=== PATIENT | female | born 1985 | race Caucasian/White ===

== ENCOUNTER 2020-02-13 14:00 | Emergency (ER) | payer MEDICAID, SELFPAY ==
--- NOTE | 2020-02-13 14:04 | PC.NURSE ---
PT AWAKE, ALERT AND ORIENTED X 4 SPEECH CLEAR PT ADMITS TO TAKING 1/2 [employer]
[2020-02-13 14:16] VITALS: BP 137/98; PULSE 116; RESP 8; TEMP 37.1; O2SAT 90; BMI 25.0
[2020-02-13 14:23] VITALS: RESP 6; O2SAT 67
[2020-02-13 14:26] VITALS: PULSE 98; RESP 16; O2SAT 99
[2020-02-13 14:41] LABS: Microscopic, Urine URINE MICROSCOPIC (MICROSCOPIC)
[2020-02-13 14:43] LABS: Basophils # 0.1 K/mm3 (0-0.2); Basophils % 0.6 % (0.1-2.0); Eosinophils # 0.4 K/mm3 (0.0-0.4); Eosinophils % 2.6 % (0.1-12.0); Hematocrit 39.8 % (37.0-47.0); Hemoglobin 13.2 g/dL (12.2-16.2); Lymphocytes # 5.9 K/mm3 (0.7-4.5); Lymphocytes % 41.5 % (10-50); Mean Corpuscular HGB Conc 33.1 g/dL (31.8-35.4); Mean Corpuscular Hemoglobin 31.6 pg (27.0-31.2); Mean Corpuscular Volume 95.5 fl (81-99); Mean Platelet Volume 8.5 fl (7.4-10.4); Monocytes # 0.5 K/mm3 (0.1-1.0); Monocytes % 3.8 % (1.7-9.3); Neutrophils # 7.3 K/mm3 (1.8-7.8); Neutrophils % 51.4 % (37.0-80.0); Platelet Count 337 K/mm3 (142-424); Red Blood Count 4.17 M/mm3 (4.20-5.40); Red Cell Distribution Width 13.9 % (11.5-17.5); White Blood Count 14.2 K/mm3 (4.8-10.8)
[2020-02-13 14:44] LABS: Appearance,Urine CLEAR (Clear); Bilirubin,Urine Negative (Negative); Blood, Urine Negative (Negative); Color,Urine YELLOW (Yellow); Glucose,Urine (UA) Negative (Negative); Ketones,Urine Negative (Negative); Leukocyte Esterase,Urine Negative (Negative); Nitrate,Urine Negative (Negative); PH,Urine 5.5 (5.0-8.5); Protein,Urine Negative (Negative); Specific Gravity, Urine >= 1.030 (1.005-1.030); Urobilinogen,Urine 0.2 EU/dl (0.2)
[2020-02-13 14:45] LABS: Urine Pregnancy, HCG Qual. Negative (Negative)
[2020-02-13 14:51] LABS: RBC,Urine Occasional #/hpf (0-3); Squamous Epithelial Cell,Urine Occasional #/hpf (0-5); WBC,Urine Occasional #/hpf (0-3)
[2020-02-13 14:55] LABS: Alanine Aminotransferase 13 U/L (12-78); Albumin Level 4.4 g/dl (3.5-5.0); Albumin/Globulin Ratio 1.5 (1.1-1.8); Alkaline Phosphatase 49 U/L (38-126); Anion Gap 9.8 mEq/L (5-15); Aspartate Amino Transferase 31 U/L (14-36); Bilirubin,Total 0.2 mg/dl (0.2-1.3); Blood Urea Nitrogen 12 mg/dl (7-17); Calcium 8.7 mg/dl (8.4-10.2); Carbon Dioxide 29 mmol/L (22.0-30.0); Chloride 100 mmol/L (98-107); Creatinine Clearance Estimated 149 mL/min (50-200); Estimated Glomerular Filt Rate 113 ml/min (>60); GFR (African American) 137 ML/MIN (>60); Globulin 2.9 g/dL (1.3-3.2); Glucose 114 mg/dl (74-100); Potassium 3.8 mmoL/L (3.5-5.1); Sodium 135 mmol/L (136-145); Total Protein,Serum 7.3 g/dl (6.3-8.2)
[2020-02-13 14:56] LABS: Barbiturates Screen,Urine Negative ng/ml (<200)
[2020-02-13 14:57] LABS: Amphetamine/Metha Screen,Urine Negative ng/ml (<1000); Benzodiazepines Screen,Urine Negative ng/ml (<200)
[2020-02-13 14:58] LABS: Cannabinoid Screen,Urine Negative ng/ml (<50); Cocaine Screen,Urine Negative ng/ml (<300)
[2020-02-13 14:59] LABS: Ethyl Alcohol < 10 mg/dl (0-10); Methadone Screen,Urine Negative ng/ml (<300)
[2020-02-13 15:00] LABS: Opiate Screen,Urine Negative ng/ml (<300); Phencyclidine Screen,Urine Negative ng/ml (<25)
[2020-02-13 15:03] LABS: Acetaminophen < 10 ug/ml (10-30)
--- NOTE | 2020-02-13 15:03 | ECG_ITS ---
APPROVED REPORT Exam: Resting ECG HR:88 bpm ECG Measurements Heart Rate 88 AXES UT 166 P 49 QRSd 98 QRS 42 QT 380 T 48 QTc 459 <Conclusion> Normal sinus rhythm Incomplete RBBB Otherwise a normal ECG Electronically signed by : Sunil Collins, 02/14/2020 13:59:02
[2020-02-13 15:10] LABS: Salicylate < 1.0 mg/dL (2.0-20.0)
--- NOTE | 2020-02-13 15:28 | HMH.EDGENADL ---
ED Disposition Clinical Impression: Altered mental status Qualifiers: Altered mental status type: stupor Qualified Code(s): R40.1 - Stupor Syncope Qualifiers: Syncope type: vasovagal syncope Qualified Code(s): R55 - Syncope and collapse Disposition: Home, Self-Care Condition on Discharge: Good Instructions: DI for Syncope in Adults (Fainting) Additional Instructions: You have been evaluated for syncopal episode, likely vasovagal. This could be due to your recent concussion, head injury. Please stay hydrated. Avoid drugs and alcohol. Follow-up with your primary care doctor. Referrals: Provider,Referral, [Primary Care Provider] - Time of Disposition: 15:49 - Critical Care Critical Care Time: No Attestation: On 02/13/20, the high probability of a clinically significant, sudden or life threatening deterioration of the following system(s) required my full and direct attention, intervention and personal management. The time I documented below is in addition to time spent performing reported procedures but includes the following listed in this critical care notation. Medical Decision Making - [place] Inquiry Pt receiving controlled substance: No Vital Signs: 02/13/20 14:16 02/13/20 14:23 02/13/20 14:26 Temperature 98.7 F Temperature Source Oral Pulse Rate [Left Radial] 116 H 98 H Respiratory Rate 8 L 6 L 16 Blood Pressure [Right Arm] 137/98 H Blood Pressure Mean [Right Arm] 111 Blood Pressure Source [Right Arm] Blood Pressure Position [Right Arm] Sitting 02 Sat by Pulse Oximetry 90 L 67 L 99 Oxygen Delivery Method Room Air Room Air Room Air 02/13/20 15:34 Temperature Temperature Source Pulse Rate [Left Radial] 84 Respiratory Rate Blood Pressure [Right Arm] 122/80 Blood Pressure Mean [Right Arm] 94 Blood Pressure Source [Right Arm] Automatic Cuff Blood Pressure Position [Right Arm] Sitting 02 Sat by Pulse Oximetry 98 Oxygen Delivery Method Room Air - Lab Data Lab Results 02/13/20 14:20: Urine Color Yellow, Urine Appearance Clear, Urine pH 5.5, Ur Specific Rickman >= 1.030, Urine Protein Negative, Urine Glucose (UA) Negative, Urine Ketones Negative, Urine Blood Negative, Urine Nitrate Negative, Urine Bilirubin Negative, Urine Urobilinogen 0.2, Ur Leukocyte Esterase Negative, Urine RBC Occasional, Urine WBC Occasional, Ur Squamous Epith Cells Occasional, Urine Bacteria None 02/13/20 14:20: Urine HCG, Qual Negative 02/13/20 14:20: Urine Opiates Screen Negative, Urine Methadone Screen Negative, Ur Barbituates Screen Negative, Ur Phencyclidine Scrn Negative, Ur Amphetamines Screen Negative, U Benzodiazepines Scrn Negative, Urine Cocaine Screen Negative, U Marijuana (THC) Screen Negative 02/13/20 14:20: Plasma/Serum Alcohol < 10 02/13/20 14:20: WBC 14.2 H, RBC 4.17 L, Hgb 13.2, Hct 39.8, MCV 95.5, MCH 31.6 H, MCHC 33.1, RDW 13.9, Plt Count 337, MPV 8.5, Neut % (Auto) 51.4, Lymph % (Auto) 41.5, Sweet [place] % (Auto) 3.8, Eos % (Auto) 2.6, Baso % (Auto) 0.6, Neut # (Auto) 7.3, Lymph # (Auto) 5.9 H, Sweet [place] # (Auto) 0.5, Eos # (Auto) 0.4, Baso # (Auto) 0.1 02/13/20 14:20: Sodium 135 L, Potassium 3.8, Chloride 100, Carbon Dioxide 29, Anion Gap 9.8, BUN 12, Creatinine 0.60, Estimated Creat Clear 149, Estimated GFR 113, Est GFR ( Amer) 137, Glucose 114 H, Calcium 8.7, Total Bilirubin 0.2, AST 31, ALT 13, Alkaline Phosphatase 49, Total Protein 7.3, Albumin 4.4, Globulin 2.9, Albumin/Globulin Ratio 1.5, Salicylates < 1.0 L, Acetaminophen < 10 L Result diagrams: 02/13/20 14:20 02/13/20 14:20 Orders (Tests/Meds): ED MEDICATIONS Discontinued Medications Generic Name Dose Route Start Last Admin Trade Name Freq PRN Reason Stop Dose Admin Naloxone HCl 2 mg 02/13/20 14:29 02/13/20 14:03 Narcan 2mg/2ml Syringe IV 02/13/20 14:30 2 mg ONCE ONE Administration - ECG Data Tracing #1 Sinus rhythm with ventricular rate of 88 bpm. QRS 98, QTc 459. ECG initial impression date: 0
[2020-02-13 15:34] VITALS: BP 122/80; PULSE 84; O2SAT 98
[2020-02-13 15:58] VITALS: BP 123/62; PULSE 89; RESP 16; TEMP 36.6; O2SAT 98
== END 2020-02-13 16:00 | disposition home or self-care (01) ==
PROVIDERS: Emergency Provider Emergency Medicine
DX: R40.1 Stupor (principal); R55 Syncope and collapse
CPT/HCPCS: 80053; 80305; 80329; 81001; 81025; 85025; 93005; 96374; 99283; J2310

== ENCOUNTER → 2020-06-12 13:51 | Outpatient (CLI) | payer BC, SELFPAY ==
--- NOTE | 2020-06-12 13:56 | XR_ITS ---
PROCEDURE: XR SHOULDER RT MIN 2V CLINICAL INDICATION: shoulder pain COMPARISON: No exams were available for comparison FINDINGS: No fracture or dislocation. No lytic or blastic change. There is normal mineralization. The joint spaces are well-preserved. No significant degenerative/arthritic changes. No erosive changes evident. Other findings:None. IMPRESSION: No acute findings. Dictated b Aurelio Diaz MD 06/12/2020 14:59 Aurelio Diaz MD in [place] 06/12/2020 14:59
== END ==
PROVIDERS: PCP Nurse Practitioner Family; Visit Provider Orthopaedic Surgery
DX: M25.511 Pain in right shoulder (principal)
CPT/HCPCS: 73030

== ENCOUNTER → 2020-06-28 12:54 | Outpatient (CLI) | payer BC, SELFPAY ==
--- NOTE | 2020-06-28 12:54 | MR_ITS ---
PROCEDURE: MR SHOULDER RT WO CON CLINICAL INDICATION: right shoulder pain S/P injury 1 month ago with co/ntinued pain and limited range of /motion. COMPARISON: DX XR SHOULDER RT MIN 2V from 06/12/2020 TECHNIQUE: Routine multiplanar multi echo sequences are performed without gadolinium enhancement. FINDINGS: The acromioclavicular joint has an unremarkable appearance. No significant subacromial stenosis. There is mild thickening of the supraspinatus and infraspinatus tendons with slight increase in T2 signal consistent with tendinopathy/tendinosis. No evidence rotator cuff tear. Subscapularis and teres minor tendons are intact. There is some minor thickening of the subscapularis tendon with increased T2 signal. Fluid is present within the bicipital tendon sheath below the greater tuberosity level consistent with tendinitis. Bicipital tendon is in place.. No evidence of labral tear. IMPRESSION: 1. Tendinopathy/tendinosis of the supraspinatus, infraspinatus, and subscapularis tendons. No evidence of rotator cuff tear 2. Focal fluid within the bicipital tendon sheath suggesting tendonitis Dictated by: Aurelio Diaz MD 06/29/2020 10:38 Aurelio Diaz MD in [place] 06/29/2020 10:38
== END ==
PROVIDERS: PCP Nurse Practitioner Family; Visit Provider Orthopaedic Surgery
DX: M25.511 Pain in right shoulder (principal)
CPT/HCPCS: 73221

== ENCOUNTER 2021-06-29 18:15 | Emergency (ER) | payer BC, SELFPAY ==
[2021-06-29 18:16] VITALS: BP 123/79; PULSE 95; RESP 22; TEMP 37.5; O2SAT 98; BMI 28.2
--- NOTE | 2021-06-29 18:19 | HMH.EDGENADL ---
ED Disposition Clinical Impression: Alcoholic intoxication Qualifiers: Complication of substance-induced condition: uncomplicated Qualified Code(s): F10.920 - Alcohol use, unspecified with intoxication, uncomplicated Depression Qualifiers: Depression Type: unspecified Qualified Code(s): F32.9 - Major depressive disorder, single episode, unspecified Disposition: Left Against Medical Advice Condition on Discharge: Fair Instructions: DI for Altered Mental Status Referrals: Provider,Referral, MD [Primary Care Provider] - 3 days Time of Disposition: 18:54 - Critical Care Critical Care Time: No Attestation: On , the high probability of a clinically significant, sudden or life threatening deterioration of the following system(s) required my full and direct attention, intervention and personal management. The time I documented below is in addition to time spent performing reported procedures but includes the following listed in this critical care notation. Medical Decision Making - Medical Records Medical records reviewed: Yes: I reviewed the patient's medical records. - [place] Inquiry Pt receiving controlled substance: No Vital Signs: 06/29/21 18:16 Temperature 99.5 F Temperature Source Oral Pulse Rate [Left] 95 H Respiratory Rate 22 Blood Pressure [Right Arm] 123/79 Blood Pressure Mean [Right Arm] 93 Blood Pressure Source [Right Arm] Automatic Cuff 02 Sat by Pulse Oximetry 98 - Lab Data Lab Results 06/29/21 18:20: Urine HCG, Qual Negative Orders (Tests/Meds): ORDERS Category Date Time Status Acetaminophen Stat Lab 06/29/21 18:32 Received Complete Blood Count Auto Diff Stat Lab 06/29/21 18:32 Received Comprehensive Metabolic Panel Stat Lab 06/29/21 18:32 Received Drug Screen,Urine Stat Lab 06/29/21 18:20 Received Ethanol [Ethyl Alcohol] Stat Lab 06/29/21 18:32 Received Salicylate Stat Lab 06/29/21 18:32 Received Urinalysis and Microscopic Stat Lab 06/29/21 18:20 Received Medical Decision Narrative: 36yo F evaluated for abnormal behavior possible overdose. Patient is emotionally distraught but otherwise in no acute distress. Physical exam is largely benign other than her emotional distress. Routine laboratories have been ordered. Pt observed to walk out of the ED. Would not respond to staff. [employer] called. General Adult HPI - General Chief complaint: Altered Mental Status Stated complaint: AMS Time Seen by Provider: 06/29/21 18:19 Mode of Arrival: EMS Source of Information: Patient Limitations: acute intox, emotional distress - History of Present Illness HPI narrative: 36yo F with past medical history of opiate use disorder maintained on Suboxone brought in by EMS for abnormal behavior. Patient reports her and her boyfriend had argument because she is unhappy with their relationship and wants to leave. She states she thinks she is scared him and that is why he called the police. She further states she has had 2 alcoholic beverages today. She is unhappy with her relationship because she thinks he is taking inappropriate medications. To prove this point, she took 2 of them today. She denies any thoughts of self-harm. She denies any thoughts of harm to others. Denies any other recent illness. - Related Data Home Medications Medication Instructions Recorded Confirmed Escitalopram Oxalate 10 mg PO DAILY 06/29/21 06/29/21 Trazodone HCl 150 mg PO HS 06/29/21 06/29/21 buPROPion HCL [Bupropion Xl] 150 mg PO DAILY 06/29/21 06/29/21 Allergies Allergy/AdvReac Type Severity Reaction Status Date / Time No Known Allergies Allergy Verified 06/29/21 18:29 [facility] History - Hepatitis A Screen Drug use history?: Yes Attestation statement:: This patient has been screened for Hepatitis A risk factors. I have reviewed the patient's past medical history: Yes Medical History: Reports:: Anxiety, Depression - Social History Smoking Status: Current every day smoker #
[2021-06-29 18:36] LABS: Microscopic, Urine URINE MICROSCOPIC (MICROSCOPIC)
--- NOTE | 2021-06-29 18:41 | PC.NURSE ---
spoke with pt's father he said he would be here to get her up d/c
[2021-06-29 18:42] LABS: Appearance,Urine CLEAR (Clear); Bilirubin,Urine Negative (Negative); Blood, Urine Negative (Negative); Color,Urine YELLOW (Yellow); Glucose,Urine (UA) Negative (Negative); Ketones,Urine Negative (Negative); Leukocyte Esterase,Urine Negative (Negative); Nitrate,Urine Negative (Negative); Protein,Urine Negative (Negative); Specific Gravity, Urine <= 1.005 (1.005-1.030); Urobilinogen,Urine 0.2 EU/dl (0.2)
--- NOTE | 2021-06-29 18:50 | PC.NURSE ---
pt walked out the back door would not stop, [place] [employer] NOTIFIED
[2021-06-29 18:51] LABS: Urine Pregnancy, HCG Qual. Negative (Negative)
[2021-06-29 18:55] LABS: Basophils # 0.1 K/mm3 (0-0.2); Basophils % 0.8 % (0.1-2.0); Eosinophils # 0.2 K/mm3 (0.0-0.4); Eosinophils % 1.5 % (0.1-12.0); Hemoglobin 13.9 g/dL (12.2-16.2); Lymphocytes # 3.2 K/mm3 (0.7-4.5); Lymphocytes % 33.7 % (10-50); Mean Corpuscular HGB Conc 30.9 g/dL (31.8-35.4); Mean Corpuscular Hemoglobin 30.3 pg (27.0-31.2); Mean Corpuscular Volume 97.9 fl (81-99); Mean Platelet Volume 9.1 fl (7.4-10.4); Monocytes # 0.3 K/mm3 (0.1-1.0); Monocytes % 2.8 % (1.7-9.3); Neutrophils # 5.8 K/mm3 (1.8-7.8); Neutrophils % 61.1 % (37.0-80.0); Platelet Count 281 K/mm3 (142-424); Red Cell Distribution Width 14.1 % (11.5-17.5); White Blood Count 9.5 K/mm3 (4.8-10.8)
[2021-06-29 18:58] LABS: Alanine Aminotransferase 9 U/L (12-78); Albumin Level 4.5 g/dl (3.5-5.0); Albumin/Globulin Ratio 1.5 (1.1-1.8); Alkaline Phosphatase 53 U/L (38-126); Anion Gap 15.7 mEq/L (5-15); Aspartate Amino Transferase 25 U/L (14-36); Bilirubin,Total 0.3 mg/dl (0.2-1.3); Blood Urea Nitrogen 4 mg/dl (7-17); Calcium 8.5 mg/dl (8.4-10.2); Carbon Dioxide 26 mmol/L (22.0-30.0); Chloride 110 mmol/L (98-107); Creatinine Clearance Estimated 138 mL/min (50-200); Estimated Glomerular Filt Rate 94 ml/min (>60); Ethyl Alcohol 255 mg/dl (0-10); GFR (African American) 114 ML/MIN (>60); Globulin 3.1 g/dL (1.3-3.2); Glucose 96 mg/dl (74-100); Potassium 3.7 mmoL/L (3.5-5.1); Sodium 148 mmol/L (136-145); Total Protein,Serum 7.6 g/dl (6.3-8.2)
[2021-06-29 19:03] LABS: Amphetamine/Metha Screen,Urine Negative ng/ml (<1000)
[2021-06-29 19:04] LABS: Barbiturates Screen,Urine Negative ng/ml (<200)
[2021-06-29 19:05] LABS: Benzodiazepines Screen,Urine Negative ng/ml (<200); Cannabinoid Screen,Urine Negative ng/ml (<50)
[2021-06-29 19:06] LABS: Cocaine Screen,Urine Negative ng/ml (<300); Methadone Screen,Urine Negative ng/ml (<300)
[2021-06-29 19:07] LABS: Opiate Screen,Urine Negative ng/ml (<300)
[2021-06-29 19:08] LABS: Phencyclidine Screen,Urine Negative ng/ml (<25)
--- NOTE | 2021-06-29 19:08 | PC.NURSE ---
patient escorted back to ER with police.
[2021-06-29 19:11] LABS: Acetaminophen < 10 ug/ml (10-30); Salicylate < 1.0 mg/dL (2.0-20.0)
--- NOTE | 2021-06-29 19:42 | PC.NURSE ---
Pt walked out Ambulance bay door. This RN asked pt if she wanted to sign her discharge paper work and requested her use proper exit door. Pt said Im not waiting on this shit. Yall are getting on my fucking nerves.
[2021-06-29 19:45] VITALS: BP 00/00; PULSE 0; RESP 0; TEMP -17.7; TEMP 0
== END 2021-06-29 19:46 | disposition left against medical advice (07) ==
PROVIDERS: Emergency Provider Family Medicine
DX: F10.920 Alcohol use, unspecified with intoxication, uncomplicated (principal); F41.8 Other specified anxiety disorders
CPT/HCPCS: 36415; 80053; 80305; 80329; 81001; 81025; 85025; 99282

== ENCOUNTER → 2022-08-07 15:43 | Outpatient (CLI) | payer BC, SELFPAY ==
[2022-08-07 17:28] LABS: Thyroid Stimulating Hormone 2.74 uIU/mL (0.465-4.68)
[2022-08-09 09:12] LABS: Estradiol 45.6 pg/mL (.); FSH 6.9 mIU/mL (.)
== END ==
PROVIDERS: PCP Pediatrics; Visit Provider Obstetrics & Gynecology
DX: Z01.419 Encounter for gynecological examination (general) (routine) without abnormal findings (principal); R53.83 Other fatigue
CPT/HCPCS: 36415; 82670; 83001; 84443

== ENCOUNTER 2022-08-15 12:05 | Outpatient (CLI) | payer BC, SELFPAY ==
[2022-08-15 12:27] VITALS: BP 144/86; PULSE 86; RESP 18; TEMP 36.1; O2SAT 98
== END 2022-08-15 12:57 | disposition home or self-care (01) ==
LOC: INF 12:06
PROVIDERS: PCP Pediatrics; Visit Provider Obstetrics & Gynecology
DX: N77.1 Vaginitis, vulvitis and vulvovaginitis in diseases classified elsewhere (principal); B96.29 Other Escherichia coli [E. coli] as the cause of diseases classified elsewhere
CPT/HCPCS: 96372; J0696

== ENCOUNTER → 2023-05-20 09:29 | Outpatient (CLI) | payer BC, SELFPAY ==
[2023-05-20 10:35] LABS: HCG,Quantitative < 2 mIU/ml (0-5.42)
[2023-05-21 05:10] LABS: Progesterone 0.1 ng/mL (.)
== END ==
PROVIDERS: PCP Pediatrics; Visit Provider Obstetrics & Gynecology
DX: R10.2 Pelvic and perineal pain (principal)
CPT/HCPCS: 36415; 84144; 84702

== ENCOUNTER 2023-09-15 17:22 | Emergency (ER) | payer BC, SELFPAY ==
[2023-09-15 17:25] VITALS: BP 152/100; PULSE 80; RESP 18; TEMP 36.8; O2SAT 100; BMI 26.6
--- NOTE | 2023-09-15 17:52 | CT_ITS ---
PROCEDURE INFORMATION: Exam: CT Chest Without Contrast; Diagnostic Exam date and time: 09/15/2023 6:24 PM Age: 38 years old Clinical indication: Injury or trauma; Fall; Blunt trauma (contusions or hematomas); Additional info: Fall/pain TECHNIQUE: Imaging protocol: Diagnostic computed tomography of the chest without contrast. Radiation optimization: All CT scans at this facility use at least one of these dose optimization techniques: automated exposure control; mA and/or kV adjustment per patient size (includes targeted exams where dose is matched to clinical indication); or iterative reconstruction. REPORTING DATA: Count of CT and Cardiac NM exams in prior 12 months: This patient has received 0 known CTs and 0 known cardiac nuclear medicine studies in the 12 months prior to the current study. COMPARISON: MR SHOULDER RT WO CON 06/28/2020 1:11 PM FINDINGS: Thyroid: The visualized thyroid gland is unremarkable. Lungs: No acute tracheobronchial abnormalities. No infiltrates or edema. No pulmonary contusion.Mild atelectasis in the lung bases. No pulmonary mass lesions are identified. Pleural spaces: No pleural effusions. No pneumothorax. Heart: Heart size normal. Mild coronary artery calcification. Mediastinal space: Granulomatous calcifications in the lower mediastinum, both patrick, and both lung bases. The esophagus is largely contracted without gross abnormality. Lymph nodes: No supraclavicular or axillary adenopathy. No mediastinal or hilar adenopathy. Vasculature: The aorta is unremarkable. No mediastinal hematoma. Minor stranding and vessels in the anterior mediastinal fat is consistent with involuted thymic tissue, age-appropriate. The pulmonary arteries demonstrate no gross abnormality. Kidneys and ureters: Rounded low-density probable cyst in the left renal cortex measuring 7 Hounsfield units. This does not require further assessment. Bones/joints: No acute osseous abnormalities are identified. Mild thoracic spondylosis. Soft tissues: Soft tissues of the thoracic wall demonstrate no acute abnormality. IMPRESSION: 1. No acute thoracic process is identified. 2. Nonemergent findings detailed above. COMMENTS: Consistent with the [employer]'s Incidental Findings Committee white paper (J Am Eduardo Radiol 2018): Any incidental renal lesion less than 1 cm or classified as too small to characterize, or any incidental cystic renal lesion characterized as simple-appearing, is likely benign. No follow-up imaging is recommended for these lesions per consensus recommendations based on imaging criteria.
--- NOTE | 2023-09-15 17:56 | XR_ITS ---
PROCEDURE INFORMATION: Exam: XR Right Tibia and Fibula Exam date and time: 09/15/2023 6:04 PM Age: 38 years old Clinical indication: Injury or trauma; Fall; Blunt trauma; Lower leg; Right; Additional info: Proximal tibia pain due to fall earlier today TECHNIQUE: Imaging protocol: Radiologic exam of the right tibia and fibula. Views: 2 views. COMPARISON: No relevant prior studies available. FINDINGS: Bones/joints: No fracture. Normal alignment is maintained at the knee and ankle. The ankle mortise joint is well maintained. Knee joint spaces are grossly well-maintained. Proximal and distal tibiofibular alignment are normal. No blastic or lytic lesions. No gross joint effusion. Soft tissues: No periostitis or osteolysis. No gross soft tissue abnormalities. No radiopaque foreign bodies. Other findings: Lateral view limited by obliquity. IMPRESSION: No acute findings.
--- NOTE | 2023-09-15 17:56 | XR_ITS ---
PROCEDURE INFORMATION: Exam: XR Right Shoulder Exam date and time: 09/15/2023 6:01 PM Age: 38 years old Clinical indication: Injury or trauma; Fall; Blunt trauma (contusions or hematomas); Shoulder; Right TECHNIQUE: Imaging protocol: Radiologic exam of the right shoulder. Views: 2 or more views. COMPARISON: MR SHOULDER RT WO CON 06/28/2020 1:11 PM FINDINGS: Bones/joints: No fractures. Glenohumeral alignment is normal. A.C. joint alignment is normal. No blastic or lytic lesions. Adjacent ribs are intact. Lungs: Visualized lung parenchyma is unremarkable. Pleural space: No visible pleural effusion or pneumothorax. Soft tissues: No gross soft tissue abnormalities. IMPRESSION: No acute findings.
--- NOTE | 2023-09-15 17:59 | HMH.EDGENADL ---
Discharge Plan Disposition Patient Disposition: Home, Self-Care Prescriptions Prescriptions: New methocarbamol 500 mg tablet 500 mg PO Q8H Qty: 12 0RF No Action buspirone 10 mg tablet 10 mg PO TID buprenorphine-naloxone 8-2 mg tablet, sublingual 1 tab sublingual .1 1/2 tabs QD metronidazole 500 mg tablet 500 mg PO BID amoxicillin-pot clavulanate 875-125 mg tablet 1 tab PO BID Slynd 4 mg (28) Tablet 1 tab PO DAILY trazodone 150 MG tablet 150 mg PO HS bupropion HCl 150 mg tablet extended release 24 hr 300 mg PO DAILY escitalopram oxalate 10 mg tablet 20 mg PO DAILY Referrals Follow up/Referrals: Noa Bryant DO [Primary Care Provider] - See instructions Activity Restrictions/Add. Instructions Additional Instructions/Restrictions: At this time it was felt you are safe to be discharged home. If new or worsening symptoms please do not hesitate to return the emergency department. If symptoms persist please follow-up with your family doctor as you are able. Please take your medication as prescribed. Clinical Impressions Clinical Impression: Blunt trauma, Fall, Rib pain Discharge ED Provider: Corona Begum General Adult HPI General Chief complaint: PAIN Stated complaint: AO fall, hit right side of chest, right arm, soa, Time Seen by Provider: 09/15/23 17:40 Mode of Arrival: Ambulatory Source of Information: Patient and Spouse Limitations: No Limitations Description of Symptoms (Recalled from ER Triage Doc. by RN): c/o right breast into her rib and back after a fall earlier today around 3pm where she hit a stove with hurt area. Pt states that the pain goes down her right arm causing stiffness in her fingers, some pain on her right skin. Pt denies hitting her head any loc or other injuries at this time. History of Present Illness HPI narrative: Patient is a 38-year-old female with no pertinent past medical history no blood thinners who presents emergency department for evaluation of traumatic injury sustained in a fall. History is obtained by patient at bedside. Patient had a chemical fall earlier today onto her right thoracic cage and shoulder with resultant pain. No loss of consciousness. She is complaining of associated right shoulder pain, right tibia pain. No other acute complaints at this time. Related Data Home Medications Medication Instructions Recorded Confirmed trazodone 150 mg tablet 150 mg PO HS Depression 06/29/21 08/15/22 buprenorphine 8 mg-naloxone 2 mg 1 tab sublingual .1 1/2 tabs QD 08/07/22 08/15/22 sublingual tablet addiction bupropion HCl 150 mg 24 hr tablet, 300 mg PO DAILY Anxiety 08/07/22 08/15/22 extended release buspirone 10 mg tablet 10 mg PO TID Anxiety 08/07/22 08/15/22 escitalopram oxalate 10 mg tablet 20 mg PO DAILY Anxiety 08/07/22 08/15/22 amoxicillin 875 mg-potassium 1 tab PO BID vaginal infection 08/15/22 08/15/22 clavulanate 125 mg tablet drospirenone (contraceptive) 4 mg 1 tab PO DAILY hormones 08/15/22 08/15/22 (28) tablet (Slynd) metronidazole 500 mg tablet 500 mg PO BID vaginal infection 08/15/22 08/15/22 Previous Rx's Medication Instructions Recorded methocarbamol 500 mg tablet 500 mg PO Q8H #12 tabs 09/15/23 Allergies Allergy/AdvReac Type Severity Reaction Status Date / Time No Known Allergies Allergy Verified 08/15/22 12:18 [facility] Disclaimer: The information contained in this section may have been updated after the patient was seen, as this information can be updated by other users. Medical History Abnormal uterine bleeding Anxiety Breast tenderness in female History of drug abuse Pelvic pain Surgical History History of section, classical Family History Other Alcoholism Cancer Diabetes Heart attack
[2023-09-15 18:04] LABS: Urine Pregnancy, HCG Qual. Negative (Negative)
[2023-09-15 18:45] VITALS: BP 131/70; PULSE 71; RESP 18; O2SAT 98
[2023-09-15 19:15] VITALS: BP 133/81; PULSE 80; RESP 16; TEMP 36.8; O2SAT 98
== END 2023-09-15 19:16 | disposition home or self-care (01) ==
PROVIDERS: Emergency Provider Emergency Medicine; PCP Pediatrics
DX: R07.82 Intercostal pain (principal); W19.XXXA Unspecified fall, initial encounter; Z87.891 Personal history of nicotine dependence
CPT/HCPCS: 71250; 73030; 73590; 81025; 99284; 99285

== ENCOUNTER 2023-12-31 21:14 | Emergency (ER) | payer BC, SELFPAY ==
--- NOTE | 2023-12-31 21:30 | PC.NURSE ---
called triage. sent to room 4.
[2023-12-31 21:40] VITALS: BP 134/90; PULSE 51; RESP 20; TEMP 36.8; O2SAT 100; BMI 29.7
--- NOTE | 2023-12-31 21:46 | HMH.EDGENADL ---
Discharge Plan Disposition Patient Disposition: Home, Self-Care Condition: Good Prescriptions Prescriptions: New ondansetron 4 mg tablet,disintegrating 4 mg PO Q6H PRN (Reason: nausea and vomiting) Qty: 10 0RF promethazine 25 mg tablet 25 mg PO Q6H PRN (Reason: nausea and vomiting) Qty: 7 0RF No Action buspirone 10 mg tablet 10 mg PO TID buprenorphine-naloxone 8-2 mg tablet, sublingual 1 tab sublingual .1 1/2 tabs QD metronidazole 500 mg tablet 500 mg PO BID amoxicillin-pot clavulanate 875-125 mg tablet 1 tab PO BID Slynd 4 mg (28) Tablet 1 tab PO DAILY trazodone 150 MG tablet 150 mg PO HS bupropion HCl 150 mg tablet extended release 24 hr 300 mg PO DAILY escitalopram oxalate 10 mg tablet 20 mg PO DAILY methocarbamol 500 mg tablet 500 mg PO Q8H Qty: 12 0RF Referrals Follow up/Referrals: Noa Bryant DO [Primary Care Provider] - See instructions Activity Restrictions/Add. Instructions Additional Instructions/Restrictions: Turn to the ER for any worsening or continuing symptoms. Please follow-up with your PCP as needed. Please reinitiate diet with bland foods like banana rice applesauce or toast. Please avoid carbonated beverages for at least 24 to 48 hours. Clinical Impressions Clinical Impression: Abdominal pain, vomiting, and diarrhea Discharge ED Provider: Enoch Banda General Adult HPI <JILLIAN Jameson - Last Filed: 12/31/23 23:28> General Chief complaint: Abdominal Pain Stated complaint: vomiting X 2 days, abd pain Time Seen by Provider: 12/31/23 21:46 Mode of Arrival: Ambulatory Source of Information: Patient Limitations: No Limitations Description of Symptoms (Recalled from ER Triage Doc. by RN): Pt ambulatory to ED with CO lower abd pain, N/V/D X3 days. Pt states she also noticed her urine to be darker yesterday. Pt took ibuprofen @1300 today without adequate relief. History of Present Illness HPI narrative: Patient is a 38-year-old female presents with a 3-day history of worsening nausea vomiting and now abdominal pain. Patient reports nonbilious multiple episodes of nausea vomiting but and loose stools. She began having diffuse lower abdominal pain and she presented to the emergency department for evaluation. She denies chest pain fever chills hemoptysis hematochezia melena hematemesis hematuria Related Data Home Medications Medication Instructions Recorded Confirmed trazodone 150 mg tablet 150 mg PO HS Depression 06/29/21 08/15/22 buprenorphine 8 mg-naloxone 2 mg 1 tab sublingual .1 1/2 tabs QD 08/07/22 08/15/22 sublingual tablet addiction bupropion HCl 150 mg 24 hr tablet, 300 mg PO DAILY Anxiety 08/07/22 08/15/22 extended release buspirone 10 mg tablet 10 mg PO TID Anxiety 08/07/22 08/15/22 escitalopram oxalate 10 mg tablet 20 mg PO DAILY Anxiety 08/07/22 08/15/22 amoxicillin 875 mg-potassium 1 tab PO BID vaginal infection 08/15/22 08/15/22 clavulanate 125 mg tablet drospirenone (contraceptive) 4 mg 1 tab PO DAILY hormones 08/15/22 08/15/22 (28) tablet (Slynd) metronidazole 500 mg tablet 500 mg PO BID vaginal infection 08/15/22 08/15/22 Previous Rx's Medication Instructions Recorded methocarbamol 500 mg tablet 500 mg PO Q8H #12 tabs 09/15/23 ondansetron 4 mg disintegrating 4 mg PO Q6H PRN nausea and 12/31/23 tablet vomiting #10 tabs promethazine 25 mg tablet 25 mg PO Q6H PRN nausea and 12/31/23 vomiting #7 tabs Allergies Allergy/AdvReac Type Severity Reaction Status Date / Time No Known Allergies Allergy Verified 08/15/22 12:18 [facility] <JILLIAN Jameson - Last Filed: 12/31/23 23:28> [facility] Disclaimer: The information contained in this section may have been updated after the patient was seen, as this information can be updated by other users. Medical History Abnormal uterine bleeding Anxiety Breast tenderness in female History of drug abuse Pelvic pain Surgical History History of section, classical Family History Other Alcoholism Cancer Diabetes Heart attack Hyperlipidemia Hypertension Substance abuse Social History (Updated 08/15/22 @ 12:37 by Edy Mcclelland RN) Smoking Status: Current every day smoker alcohol intake: current substance use type: former substance user current occupational status: other Travel in the last 8 weeks: None household members: other <JILLIAN Jameson - Last Filed: 12/31/23 23:28> ROS Obtained: Yes Systems reviewed as appropriate & no additional complaints except as documented Physical Exam <JILLIAN Jameson - Last Filed: 12/31/23 23:28> General General appearance: alert and in no apparent distress Head Head exam: atraumatic and normal inspection Eye Eye exam: Present normal appearance, PERRL and EOMI ENT ENT exam: Present normal exam, normal oropharynx and mucous membranes moist Neck Neck exam: Present normal inspection, full ROM and trachea midline; Absent lymphadenopathy Chest Chest inspection: Present normal inspection and symmetric chest wall rise Respiratory Respiratory exam: Present normal lung sounds bilaterally; Absent accessory muscle use Cardiovascular Cardiovascular exam: Present regular rate, bradycardia, normal heart sounds, +S1 and +S2 Abdominal Exam Abdominal exam: Present soft, tenderness and hyperactive bowel sounds; Absent guarding or rebound Extremities Exam Extremities exam: Present normal inspection and full ROM Neurological Exam Neurological exam: Present alert, oriented X3 and CN II-XII intact Psychiatric Psychiatric exam: Present normal affect and normal mood Skin Skin exam: Present warm, dry and normal color Lymphatic Lymphatic Findings: no adenopathy Medical Decision Making <JILLIAN Jameson - Last Filed: 12/31/23 23:28> Medical Records Medical records reviewed: Yes I reviewed the patient's medical records. [place] Inquiry Pt receiving controlled substance: No Vital Signs: 12/31/23 21:40 12/31/23 22:01 12/31/23 22:30 Temperature 98.3 F Temperature Source Oral Pulse Rate 49 L 47 L Pulse Rate [Right Radial] 51 L Respiratory Rate 20 Blood Pressure 115/70 130/72 Blood Pressure [Right Arm] 134/90 Blood Pressure Mean 91 Blood Pressure Mean [Right Arm] 104 Blood Pressure Source [Right Arm] Automatic Cuff 02 Sat by Pulse Oximetry 100 99 99 Oxygen Delivery Method Room Air 12/31/23 23:01 Temperature Temperature Source Pulse Rate 46 L Pulse Rate [Right Radial] Respiratory Rate Blood Pressure 160/89 H Blood Pressure [Right Arm] Blood Pressure Mean Blood Pressure Mean [Right Arm] Blood Pressure Source [Right Arm] 02 Sat by Pulse Oximetry 99 Oxygen Delivery Method Lab Data Lab Results 12/31/23 21:39: Urine Color Yellow, Urine Appearance Clear, Urine pH 7.0, Ur Specific [employer] 1.010, Urine Protein Negative, Urine Glucose (UA) Negative, Urine Ketones Negative, Urine Blood 1+, Urine Nitrate Negative, Urine Bilirubin Negative, Urine Urobilinogen 2.0, Ur Leukocyte Esterase Negative, Urine RBC 3-5, Urine WBC Occasional, Ur Squamous Epith Cells 3-5, Urine Bacteria None 12/31/23 21:50: WBC 12.9 H, RBC 4.80, Hgb 15.2, Hct 45.9, MCV 95.6, MCH 31.8 H, MCHC 33.2, RDW 14.0, Plt Count 266, MPV 9.7, Neut % (Auto) 60.8, Lymph % (Auto) 33.7, [place] % (Auto) 4.6, Eos % (Auto) 0.4, Baso % (Auto) 0.4, Neut # (Auto) 7.8, Lymph # (Auto) 4.3, [place] # (Auto) 0.6, Eos # (Auto) 0.1, Baso # (Auto) 0.1, Sodium 137, Potassium 3.4 L, Chloride 103, Carbon Dioxide 25, Anion Gap 12.4, BUN 12, Creatinine 0.80, Estimated Creat Clear 124, Estimated GFR 80, Est GFR ( Amer) 97, Glucose 105 H, Calcium 9.1, Total Bilirubin 1.0, AST 24, ALT 15, Alkaline Phosphatase 52, Troponin I < 0.01, Total Protein 7.5, Albumin 4.5, Globulin 3.0, Albumin/Globulin Ratio 1.5, Lipase 237, HCG, Quant < 2 12/31/23 21:50 12/31/23 21:50 Orders (Tests/Meds): ED MEDICATIONS Discontinued Medications Generic Name Dose Route Start Last Admin Trade Name Freq PRN Reason Stop Dose Admin Acetaminophen 1,000 mg 12/31/23 21:50 12/31/23 22:05 Acetaminophen 1,000mg/100ml Vial IV 12/31/23 21:51 1,000 mg ONCE ONE Administration Lactated Ringer's 1,000 mls @ 999 mls/hr 12/31/23 21:50 12/31/23 22:05 Lactated Ringer's 1000 Ml Bag IV 12/31/23 22:50 999 mls/hr .Q1H1M ONE Administration Ketorolac Tromethamine 15 mg 12/31/23 21:50 12/31/23 22:03 Ketorolac 30mg/Ml Vial IV 12/31/23 21:51 15 mg ONCE ONE Administration Ondansetron HCl 4 mg 12/31/23 21:50 12/31/23 22:05 Ondansetron 4mg/2ml Vial IV 12/31/23 21:51 4 mg ONCE ONE Administration Ondansetron HCl 4 mg 12/31/23 22:57 12/31/23 23:08 Ondansetron 4mg/2ml Vial IV 12/31/23 22:58 4 mg ONCE ONE Administration ORDERS Category Date Time Status CBC w/Auto Diff [Complete Blood Count Auto Diff] Stat Lab 12/31/23 21:50 Completed CMP [Comprehensive Metabolic Panel] Stat Lab 12/31/23 21:50 Completed HCG,Quantitative Stat Lab 12/31/23 21:50 Completed Lipase Stat Lab 12/31/23 21:50 Completed Troponin I Q3H Lab 01/01/24 02:00 Ordered Troponin I Q3H Lab 01/01/24 05:00 Ordered Troponin I Stat Lab 12/31/23 21:50 Completed Urinalysis and Microscopic Stat Lab 12/31/23 21:39 Completed Medical Decision Narrative: In summary patient is a 38-year-old female presents to the emergency department for evaluation of nausea vomiting diarrhea. Patient is normotensive with heart rate of 51 and afebrile]. Skull exam is nonfocal although patient has diffuse mild abdominal pain on examination she has no rebound no guarding no rigidity bowel sounds are hyperactive. Additionally patient has a sinus bradycardia with a rate in the upper 40s to low 50s on monitor and patient is asymptomatic with no dizziness chest pain diaphoresis. Differential diagnosis includes gastroenteritis versus small bowel obstruction versus bacterial versus viral infection urinary tract infection cholecystitis acute appendicitis etc. Initial workup will be conducted with hematologic labs. Initial interventions include fluid bolus and Tylenol antiemetics EKG. Initial workup reviewed by me shows a white count of 13,000 but no shift on differential. CMP shows a potassium of 3.4 with a low normal being 3.5. The remainder of her laboratory occasions are nonactionable.. Upon further investigation with the patient regarding her bradycardia patient states that she has had a with low heart rate all my life . Upon repeat evaluation some resolution of her constitutional symptoms and has not vomited since in the ER.. Given this Prober for discharge with a prescription for Zofran and backed up by Phenergan should the Zofran did not work. Patient to return to the emergency department or PCP if her symptoms continue. <Enoch Banda MD - Last Filed: 12/31/23 23:45> Vital Signs: 12/31/23 21:40 12/31/23 22:01 12/31/23 22:30 Temperature 98.3 F Temperature Source Oral Pulse Rate 49 L 47 L Pulse Rate [Right Radial] 51 L Respiratory Rate 20 Blood Pressure 115/70 130/72 Blood Pressure [Right Arm] 134/90 Blood Pressure Mean 91 Blood Pressure Mean [Right Arm] 104 Blood Pressure Source [Right Arm] Automatic Cuff 02 Sat by Pulse Oximetry 100 99 99 Oxygen Delivery Method Room Air 12/31/23 23:01 Temperature Temperature Source Pulse Rate 46 L Pulse Rate [Right Radial] Respiratory Rate Blood Pressure 160/89 H Blood Pressure [Right Arm] Blood Pressure Mean Blood Pressure Mean [Right Arm] Blood Pressure Source [Right Arm] 02 Sat by Pulse Oximetry 99 Oxygen Delivery Method Lab Data Lab Results 12/31/23 21:39: Urine Color Yellow, Urine Appearance Clear, Urine pH 7.0, Ur Specific [employer] 1.010, Urine Protein Negative, Urine Glucose (UA) Negative, Urine Ketones Negative, Urine Blood 1+, Urine Nitrate Negative, Urine Bilirubin Negative, Urine Urobilinogen 2.0, Ur Leukocyte Esterase Negative, Urine RBC 3-5, Urine WBC Occasional, Ur Squamous Epith Cells 3-5, Urine Bacteria None 12/31/23 21:50: WBC 12.9 H, RBC 4.80, Hgb 15.2, Hct 45.9, MCV 95.6, MCH 31.8 H, MCHC 33.2, RDW 14.0, Plt Count 266, MPV 9.7, Neut % (Auto) 60.8, Lymph % (Auto) 33.7, [place] % (Auto) 4.6, Eos % (Auto) 0.4, Baso % (Auto) 0.4, Neut # (Auto) 7.8, Lymph # (Auto) 4.3, [place] # (Auto) 0.6, Eos # (Auto) 0.1, Baso # (Auto) 0.1, Sodium 137, Potassium 3.4 L, Chloride 103, Carbon Dioxide 25, Anion Gap 12.4, BUN 12, Creatinine 0.80, Estimated Creat Clear 124, Estimated GFR 80, Est GFR ( Amer) 97, Glucose 105 H, Calcium 9.1, Total Bilirubin 1.0, AST 24, ALT 15, Alkaline Phosphatase 52, Troponin I < 0.01, Total Protein 7.5, Albumin 4.5, Globulin 3.0, Albumin/Globulin Ratio 1.5, Lipase 237, HCG, Quant < 2 Orders (Tests/Meds): ED MEDICATIONS Discontinued Medications Generic Name Dose Route Start Last Admin Trade Name Freq PRN Reason Stop Dose Admin Acetaminophen 1,000 mg 12/31/23 21:50 12/31/23 22:05 Acetaminophen 1,000mg/100ml Vial IV 12/31/23 21:51 1,000 mg ONCE ONE Administration Lactated Ringer's 1,000 mls @ 999 mls/hr 12/31/23 21:50 12/31/23 22:05 Lactated Ringer's 1000 Ml Bag IV 12/31/23 22:50 999 mls/hr .Q1H1M ONE Administration Ketorolac Tromethamine 15 mg 12/31/23 21:50 12/31/23 22:03 Ketorolac 30mg/Ml Vial IV 12/31/23 21:51 15 mg ONCE ONE Administration Ondansetron HCl 4 mg 12/31/23 21:50 12/31/23 22:05 Ondansetron 4mg/2ml Vial IV 12/31/23 21:51 4 mg ONCE ONE Administration Ondansetron HCl 4 mg 12/31/23 22:57 12/31/23 23:08 Ondansetron 4mg/2ml Vial IV 12/31/23 22:58 4 mg ONCE ONE Administration ORDERS Category Date Time Status CBC w/Auto Diff [Complete Blood Count Auto Diff] Stat Lab 12/31/23 21:50 Completed CMP [Comprehensive Metabolic Panel] Stat Lab 12/31/23 21:50 Completed HCG,Quantitative Stat Lab 12/31/23 21:50 Completed Lipase Stat Lab 12/31/23 21:50 Completed Troponin I Q3H Lab 01/01/24 02:00 Ordered Troponin I Q3H Lab 01/01/24 05:00 Ordered Troponin I Stat Lab 12/31/23 21:50 Completed Urinalysis and Microscopic Stat Lab 12/31/23 21:39 Completed Medical Decision Narrative: In summary patient is a 38-year-old female presents to the emergency department for evaluation of nausea vomiting diarrhea. Patient is normotensive with heart rate of 51 and afebrile]. Skull exam is nonfocal although patient has diffuse mild abdominal pain on examination she has no rebound no guarding no rigidity bowel sounds are hyperactive. Additionally patient has a sinus bradycardia with a rate in the upper 40s to low 50s on monitor and patient is asymptomatic with no dizziness chest pain diaphoresis. Differential diagnosis includes gastroenteritis versus small bowel obstruction versus bacterial versus viral infection urinary tract infection cholecystitis acute appendicitis etc. Initial workup will be conducted with hematologic labs. Initial interventions include fluid bolus and Tylenol antiemetics EKG. Initial workup reviewed by me shows a white count of 13,000 but no shift on differential. CMP shows a potassium of 3.4 with a low normal being 3.5. The remainder of her laboratory occasions are nonactionable.. Upon further investigation with the patient regarding her bradycardia patient states that she has had a with low heart rate all my life . Upon repeat evaluation some resolution of her constitutional symptoms and has not vomited since in the ER.. Given this Prober for discharge with a prescription for Zofran and backed up by Phenergan should the Zofran did not work. Patient to return to the emergency department or PCP if her symptoms continue. Solo: I assume primary responsibility for this patient after signout from previous physician. I agree with and independently interpreted workup ordered by previous physician. hCG was added on by me on initiation of shift. hCG negative, this likely represents acute gastroenteritis. Because patient at baseline without signs or symptoms of clinical decompensation, deemed appropriate for discharge. Results were relayed to patient who voiced understanding and were agreeable to outpatient management and follow up. At the time of discharge the patient was hemodynamically stable, tolerating PO, and mobilizing appropriately. I was consulted by the GODFREY, and we discussed the complexity of the problems being addressed. I approved the treatment and management plan for this patient?s care in the Emergency Department, thus performing a substantive portion of the medical decision making. Enoch Banda MD Critical Care <JILLIAN Jameson - Last Filed: 12/31/23 23:28> Critical Care Time Critical Care Time: No
[2023-12-31 22:01] VITALS: BP 115/70; PULSE 49; O2SAT 99
[2023-12-31] MEDS: KETOROLAC 30MG/ML VIAL 15 MG IV (22:03)
[2023-12-31 22:05] LABS: Microscopic, Urine URINE MICROSCOPIC (MICROSCOPIC)
[2023-12-31] MEDS: LACTATED RINGERS 1000ML 1,000 ML 999 ML IV (22:05)
[2023-12-31] MEDS: ACETAMINOPHEN 1,000MG/100ML VIAL 1000 MG IV (22:05)
[2023-12-31] MEDS: ONDANSETRON 4MG/2ML VIAL 4 MG IV ×2 (22:05→23:08)
[2023-12-31 22:06] LABS: Appearance,Urine CLEAR (Clear); Bilirubin,Urine Negative (Negative); Blood, Urine 1+ (Negative); Color,Urine YELLOW (Yellow); Glucose,Urine (UA) Negative (Negative); Ketones,Urine Negative (Negative); Leukocyte Esterase,Urine Negative (Negative); Nitrate,Urine Negative (Negative); Protein,Urine Negative (Negative)
[2023-12-31 22:12] LABS: Basophils # 0.1 K/mm3 (0-0.2); Basophils % 0.4 % (0.1-2.0); Eosinophils # 0.1 K/mm3 (0.0-0.4); Eosinophils % 0.4 % (0.1-12.0); Hematocrit 45.9 % (37.0-47.0); Hemoglobin 15.2 g/dL (12.2-16.2); Lymphocytes # 4.3 K/mm3 (0.7-4.5); Lymphocytes % 33.7 % (10-50); Mean Corpuscular HGB Conc 33.2 g/dL (31.8-35.4); Mean Corpuscular Hemoglobin 31.8 pg (27.0-31.2); Mean Corpuscular Volume 95.6 fl (81-99); Mean Platelet Volume 9.7 fl (7.4-10.4); Monocytes # 0.6 K/mm3 (0.1-1.0); Monocytes % 4.6 % (1.7-9.3); Neutrophils # 7.8 K/mm3 (1.8-7.8); Neutrophils % 60.8 % (37.0-80.0); Platelet Count 266 K/mm3 (142-424); White Blood Count 12.9 K/mm3 (4.8-10.8)
[2023-12-31 22:26] LABS: Alanine Aminotransferase 15 U/L (12-78); Albumin Level 4.5 g/dl (3.5-5.0); Albumin/Globulin Ratio 1.5 (1.1-1.8); Alkaline Phosphatase 52 U/L (38-126); Anion Gap 12.4 mEq/L (5-15); Aspartate Amino Transferase 24 U/L (14-36); Blood Urea Nitrogen 12 mg/dl (7-17); Calcium 9.1 mg/dl (8.4-10.2); Carbon Dioxide 25 mmol/L (22.0-30.0); Chloride 103 mmol/L (98-107); Creatinine Clearance Estimated 124 mL/min (50-200); Estimated Glomerular Filt Rate 80 ml/min (>60); GFR (African American) 97 ML/MIN (>60); Glucose 105 mg/dl (74-100); Lipase 237 U/L (23-300); Potassium 3.4 mmoL/L (3.5-5.1); Sodium 137 mmol/L (136-145); Total Protein,Serum 7.5 g/dl (6.3-8.2)
[2023-12-31 22:30] VITALS: BP 130/72; PULSE 47; O2SAT 99
[2023-12-31 22:41] LABS: WBC,Urine Occasional #/hpf (0-3)
[2023-12-31 23:01] VITALS: BP 160/89; PULSE 46; O2SAT 99
--- NOTE | 2023-12-31 23:06 | ECG_ITS ---
APPROVED REPORT Exam: Resting ECG HR:46 bpm ECG Measurements Heart Rate 46 AXES QRSd 105 QRS 100 QT 463 T 79 QTc 422 Conclusion SUPRAVENTRICULAR BRADYCARDIA BORDERLINE RIGHT AXIS DEVIATION [QRS AXIS > 90] LOW QRS VOLTAGE IN PRECORDIAL LEADS [QRS DEFLECTION < 1.0 mV IN CHEST LEADS] ABNORMAL RHYTHM ECG UNCONFIRMED REPORT Electronically signed by : Skip Mac MD 01/01/2024 20:01:43
--- NOTE | 2023-12-31 23:09 | PC.NURSE ---
Pt states i have had a low heart rate my whole life PA Don aware of pts hx of bradycardia.
--- NOTE | 2023-12-31 23:20 | PC.NURSE ---
PT ASSISTED TO BATHROOM
[2023-12-31 23:22] LABS: Troponin I < 0.01 ng/ml (0.00-0.034)
--- NOTE | 2023-12-31 23:25 | PC.NURSE ---
PT. ASSISTED BACK TO BED AND HOOKED BACK UP
[2023-12-31 23:31] VITALS: BP 136/81; PULSE 45; RESP 16; O2SAT 99
[2023-12-31 23:38] LABS: HCG,Quantitative < 2 mIU/ml (0-5.42)
[2024-01-01 00:01] VITALS: BP 147/89; PULSE 44; RESP 26; O2SAT 97
[2024-01-01 00:11] VITALS: BP 147/89; PULSE 88; RESP 18; TEMP 36.9
== END 2024-01-01 00:12 | disposition home or self-care (01) ==
PROVIDERS: Emergency Medicine; Physician Assistant; Emergency Provider Emergency Medicine; PCP Pediatrics
DX: R10.30 Lower abdominal pain, unspecified (principal); R11.2 Nausea with vomiting, unspecified; R19.7 Diarrhea, unspecified; F17.200 Nicotine dependence, unspecified, uncomplicated
CPT/HCPCS: 80053; 81001; 83690; 84484; 84702; 85025; 93005; 96361; 96374; 96375; 96376; 99285; J0131; J2405

== ENCOUNTER 2025-02-28 18:55 | Emergency (ER) | payer MEDICAID, SELFPAY ==
[2025-02-28 18:59] VITALS: BP 125/68; PULSE 81; RESP 18; TEMP 37; O2SAT 98; BMI 24.2
--- NOTE | 2025-02-28 19:06 | ED_ITS ---
Discharge Plan Disposition Patient Disposition: Home, Self-Care Condition: Good Prescriptions Prescriptions: New ondansetron 4 mg tablet,disintegrating 4 mg PO QID PRN (Reason: nausea and vomiting) Qty: 10 0RF No Action buspirone 10 mg tablet 10 mg PO TID buprenorphine-naloxone 8-2 mg tablet, sublingual 1 tab sublingual .1 1/2 tabs QD metronidazole 500 mg tablet 500 mg PO BID amoxicillin-pot clavulanate 875-125 mg tablet 1 tab PO BID Slynd 4 mg (28) Tablet 1 tab PO DAILY ondansetron 4 mg tablet,disintegrating 4 mg PO Q6H PRN (Reason: nausea and vomiting) Qty: 10 0RF promethazine 25 mg tablet 25 mg PO Q6H PRN (Reason: nausea and vomiting) Qty: 7 0RF trazodone 150 MG tablet 150 mg PO HS bupropion HCl 150 mg tablet extended release 24 hr 300 mg PO DAILY escitalopram oxalate 10 mg tablet 20 mg PO DAILY methocarbamol 500 mg tablet 500 mg PO Q8H Qty: 12 0RF Referrals Follow up/Referrals: Noa Bryant DO [Primary Care Provider] - See instructions Activity Restrictions/Add. Instructions Additional Instructions/Restrictions: Recommend starting a brat diet which includes bananas rice applesauce toast. [facility] ve sent Zofran into your pharmacy. If you have any continued new or worsening signs or symptoms follow-up with your PCP return to the ER as needed. Clinical Impressions Clinical Impression: Nausea vomiting and diarrhea Stand Alone Forms Stand Alone Forms: Work/School Release Print Language Print Language: Syrian Discharge ED Provider: Dmitry Lewis General Adult HPI <JILLIAN Jameson - Last Filed: 02/28/25 20:58> General Chief complaint: Medical Clearance Stated complaint: cramps,vomiting Time Seen by Provider: 02/28/25 19:03 Mode of Arrival: Ambulatory Source of Information: Patient Description of Symptoms (Recalled from ER Triage Doc. by RN): Pt states she had english food on February 26, and that evening she started vomiting. Pt continued on friday to have sweating, cramps, and vomiting. Pt states she feels better and does not have any medical complaint but is requesting a work note so she does not get fired. History of Present Illness HPI narrative: Patient presents for a work note. Patient reports that she had [place] food on February 26 and for the next 2 days had some nausea vomiting and diarrhea. That has since abated. She is now tolerating oral intake and has no symptoms. However she was told that she needed to have a work excuse so she came to the emergency department for evaluation. Patient denies chest pain shortness of breath fever chills hemoptysis hematochezia melena nausea vomiting diarrhea. Related Data Home Medications ?Medication ?Instructions ?Recorded ?Confirmed trazodone 150 mg tablet 150 mg PO HS Depression 06/29/21 08/15/22 buprenorphine 8 mg-naloxone 2 mg 1 tab sublingual .1 1/2 tabs QD 08/07/22 08/15/22 sublingual tablet addiction bupropion HCl 150 mg 24 hr tablet, 300 mg PO DAILY Anxiety 08/07/22 08/15/22 extended release buspirone 10 mg tablet 10 mg PO TID Anxiety 08/07/22 08/15/22 escitalopram oxalate 10 mg tablet 20 mg PO DAILY Anxiety 08/07/22 08/15/22 amoxicillin 875 mg-potassium 1 tab PO BID vaginal infection 08/15/22 08/15/22 clavulanate 125 mg tablet drospirenone (contraceptive) 4 mg 1 tab PO DAILY hormones 08/15/22 08/15/22 (28) tablet (Slynd) metronidazole 500 mg tablet 500 mg PO BID vaginal infection 08/15/22 08/15/22 Previous Rx's ?Medication ?Instructions ?Recorded methocarbamol 500 mg tablet 500 mg PO Q8H #12 tabs 09/15/23 ondansetron 4 mg disintegrating 4 mg PO Q6H PRN nausea and 12/31/23 tablet vomiting #10 tabs promethazine 25 mg tablet 25 mg PO Q6H PRN nausea and 12/31/23 vomiting #7 tabs ondansetron 4 mg disintegrating 4 mg PO QID PRN nausea and 02/28/25 tablet vomiting #10 tabs Allergies Allergy/AdvReac Type Severity Reaction Status Date / Time No Known Allergies Allergy Verified 08/15/22 12:18 [facility] <JILLIAN Jameson - Last Filed: 02/28/25 20:58> [facility] Disclaimer: The information contained in this section may have been updated after the patient was seen, as this information can be updated by other users. Medical History Abnormal uterine bleeding Anxiety Breast tenderness in female History of drug abuse Pelvic pain Surgical History History of section, classical Family History Other Alcoholism Cancer Diabetes Heart attack Hyperlipidemia Hypertension Substance abuse Social History (Updated 08/15/22 @ 12:37 by Edy Mcclelland RN) Smoking Status: Current every day smoker alcohol intake: current substance use type: former substance user current occupational status: other Travel in the last 8 weeks?: None household members: other Have you lived/traveled outside [place] in past 30 days?: No Contact w/someone who lives/traveled outside [place] past 30 days?: No Exposure to someone with infectious disease in past 14 days?: No Do you have a fever (greater than 100.4 F or 38 C)?: No Have you tested positive for COVID-19?: No Exposed to someone with COVID-19 in past 14 days?: No Do you have a sore throat?: No Do you have a cough?: No Do you have any weakness?: No Do you have any diarrhea?: No Are you experiencing any unusual bleeding?: No Do you have any muscle aches/pain?: No Do you have any abdominal pain?: No Are you experiencing loss of taste or smell?: No Other Medical History Have you received the Flu Vaccine for this season: No Have you received the Pneumonia Vaccine: No <JILLIAN Jameson - Last Filed: 02/28/25 20:58> ROS Obtained: Yes Systems reviewed as appropriate & no additional complaints except as documented Physical Exam <JILLIAN Jameson - Last Filed: 02/28/25 20:58> General General appearance: alert and in no apparent distress Respiratory Respiratory exam: Present normal lung sounds bilaterally Cardiovascular Cardiovascular exam: Present regular rate Neurological Exam Neurological exam: Present alert and oriented X3 Medical Decision Making <JILLIAN Jameson - Last Filed: 02/28/25 20:58> Medical Records Screening: Per USPSTF and CDC recommendations, given the prevalence of disease in our region, it is our hospital?s policy to screen for HIV and viral Hepatitis for all patients aged 18 and over and those with ongoing risk factors. [place] Inquiry Pt receiving controlled substance: No Vital Signs: 02/28/25 18:59 02/28/25 19:20 Temperature 98.6 F 98.3 F Temperature Source Temporal Artery Scan Oral Pulse Rate 78 Pulse Rate [Right] 81 Respiratory Rate 18 18 Blood Pressure 123/78 Blood Pressure [Right Arm] 125/68 Blood Pressure Mean [Right Arm] 87 Blood Pressure Source Automatic Cuff Blood Pressure Source [Right Arm] Automatic Cuff Blood Pressure Position Sitting Blood Pressure Position [Right Arm] Sitting 02 Sat by Pulse Oximetry 98 Oxygen Delivery Method Room Air Room Air Medical Decision Narrative: In summary patient is a 40-year-old female who presents to the emergency department for evaluation of of resolved nausea vomiting diarrhea and a work note. Patient is hemodynamically stable with a blood pressure 125/68 heart rate 81 normal sinus rhythm on bedside monitor breathing 18 times a minute satting 98% on room air upon arrival, afebrile at 90.6. Physical exam is remarkable for a soft abdomen with no rebound or guarding or rigidity normal bowel sounds. Differential diagnosis includes foodborne illness versus gastroenteritis versus colitis etc. Initial workup was considered and offered including labs and imaging however patient feels that she is completely recovered and via patient directed decision making has deferred any further workup or imaging.. Initial interventions were considered with IV fluids and antiemetics however patient is tolerating oral intake and via patient direct incision making declines any interventions. Given this I had a shared decision-making discussion with the patient regarding her symptoms presentation and management and via patient directed decision making and discharge she is comfortable as she feels that she has completely recovered with no further workup or management. I did offer to send a prescription for Zofran should she have any lingering symptoms. Patient was agreeable thus patient is appropriate for discharge with prescription for Zofran and recommendations to start a brat diet until she is tolerating solid foods without difficulties. Patient advised that should she have any continued new or worsening signs or symptoms follow-up with PCP or return to the ER as needed. <Dmitry Lewis MD - Last Filed: 02/28/25 21:24> Vital Signs: 02/28/25 18:59 02/28/25 19:20 Temperature 98.6 F 98.3 F Temperature Source Temporal Artery Scan Oral Pulse Rate 78 Pulse Rate [Right] 81 Respiratory Rate 18 18 Blood Pressure 123/78 Blood Pressure [Right Arm] 125/68 Blood Pressure Mean [Right Arm] 87 Blood Pressure Source Automatic Cuff Blood Pressure Source [Right Arm] Automatic Cuff Blood Pressure Position Sitting Blood Pressure Position [Right Arm] Sitting 02 Sat by Pulse Oximetry 98 Oxygen Delivery Method Room Air Room Air Medical Decision Narrative: In summary patient is a 40-year-old female who presents to the emergency department for evaluation of of resolved nausea vomiting diarrhea and a work note. Patient is hemodynamically stable with a blood pressure 125/68 heart rate 81 normal sinus rhythm on bedside monitor breathing 18 times a minute satting 98% on room air upon arrival, afebrile at 90.6. Physical exam is remarkable for a soft abdomen with no rebound or guarding or rigidity normal bowel sounds. Differential diagnosis includes foodborne illness versus gastroenteritis versus colitis etc. Initial workup was considered and offered including labs and imaging however patient feels that she is completely recovered and via patient directed decision making has deferred any further workup or imaging.. Initial interventions were considered with IV fluids and antiemetics however patient is tolerating oral intake and via patient direct incision making declines any interventions. Given this I had a shared decision-making discussion with the patient regarding her symptoms presentation and management and via patient directed decision making and discharge she is comfortable as she feels that she has completely recovered with no further workup or management. I did offer to send a prescription for Zofran should she have any lingering symptoms. Patient was agreeable thus patient is appropriate for discharge with prescription for Zofran and recommendations to start a brat diet until she is tolerating solid foods without difficulties. Patient advised that should she have any continued new or worsening signs or symptoms follow-up with PCP or return to the ER as needed. [facility] attestation I was consulted by the GODFREY, and we discussed the complexity of problems being addressed. I approved the treatment and management plan for this patient's care in the emergency department, thus performing a substantial portion of the medical decision making. Dmitry Lewis MD Critical Care <JILLIAN Jameson - Last Filed: 02/28/25 20:58> Critical Care Time Critical Care Time: No
[2025-02-28 19:20] VITALS: BP 123/78; PULSE 78; RESP 18; TEMP 36.8; O2SAT 98
== END 2025-02-28 19:23 | disposition home or self-care (01) ==
PROVIDERS: Emergency Provider Student in an Organized Health Care Education/Training Program; PCP Pediatrics
DX: R11.2 Nausea with vomiting, unspecified (principal); R19.7 Diarrhea, unspecified
CPT/HCPCS: 99282

== ENCOUNTER 2025-03-08 18:39 | Emergency (ER) | payer MEDICAID, SELFPAY ==
--- NOTE | 2025-03-08 18:41 | ED_ITS ---
Discharge Plan Disposition Patient Disposition: Home, Self-Care Condition: Good Prescriptions Prescriptions: No Action buspirone 10 mg tablet 10 mg PO TID buprenorphine-naloxone 8-2 mg tablet, sublingual 1 tab sublingual .1 1/2 tabs QD metronidazole 500 mg tablet 500 mg PO BID amoxicillin-pot clavulanate 875-125 mg tablet 1 tab PO BID Slynd 4 mg (28) Tablet 1 tab PO DAILY ondansetron 4 mg tablet,disintegrating 4 mg PO Q6H PRN (Reason: nausea and vomiting) Qty: 10 0RF promethazine 25 mg tablet 25 mg PO Q6H PRN (Reason: nausea and vomiting) Qty: 7 0RF ondansetron 4 mg tablet,disintegrating 4 mg PO QID PRN (Reason: nausea and vomiting) Qty: 10 0RF trazodone 150 MG tablet 150 mg PO HS bupropion HCl 150 mg tablet extended release 24 hr 300 mg PO DAILY escitalopram oxalate 10 mg tablet 20 mg PO DAILY methocarbamol 500 mg tablet 500 mg PO Q8H Qty: 12 0RF Referrals Follow up/Referrals: Noa Bryant DO [Primary Care Provider] - See instructions Activity Restrictions/Add. Instructions Additional Instructions/Restrictions: Please follow-up with your PCP within 48 hours for recheck of your lower extremities. If you have any continued new or worsening signs or symptoms follow-up sooner or return to the ER as needed. Clinical Impressions Clinical Impression: Bilateral cellulitis of lower leg Print Language Print Language: Turkmen Discharge ED Provider: Enoch Banda General Adult HPI <JILLIAN Jameson - Last Filed: 03/08/25 20:54> General Chief complaint: Extremity Problem,Nontraumatic Stated complaint: Ankles are swollen Time Seen by Provider: 03/08/25 18:41 History of Present Illness HPI narrative: Patient presents for evaluation of bilateral lower extremity swelling pain and redness. Patient states that she has had swelling pain and redness that she noticed just today of her bilateral lower extremities. She denies any known injury. She has no loss of motor or sensory. She denies chest pain shortness of breath fever chills hemoptysis hematochezia melena nausea vomiting diarrhea. She never had dependent edema noted before. Related Data Home Medications ?Medication ?Instructions ?Recorded ?Confirmed trazodone 150 mg tablet 150 mg PO HS Depression 08/27/21 10/13/22 buprenorphine 8 mg-naloxone 2 mg 1 tab sublingual .1 1/2 tabs QD 08/07/22 08/15/22 sublingual tablet addiction bupropion HCl 150 mg 24 hr tablet, 300 mg PO DAILY Anxiety 08/07/22 08/15/22 extended release buspirone 10 mg tablet 10 mg PO TID Anxiety 08/07/22 08/15/22 escitalopram oxalate 10 mg tablet 20 mg PO DAILY Anxiety 08/07/22 08/15/22 amoxicillin 875 mg-potassium 1 tab PO BID vaginal infection 08/15/22 08/15/22 clavulanate 125 mg tablet drospirenone (contraceptive) 4 mg 1 tab PO DAILY hormones 08/15/22 08/15/22 (28) tablet (Slynd) metronidazole 500 mg tablet 500 mg PO BID vaginal infection 08/15/22 08/15/22 Previous Rx's ?Medication ?Instructions ?Recorded methocarbamol 500 mg tablet 500 mg PO Q8H #12 tabs 09/15/23 ondansetron 4 mg disintegrating 4 mg PO Q6H PRN nausea and 12/31/23 tablet vomiting #10 tabs promethazine 25 mg tablet 25 mg PO Q6H PRN nausea and 12/31/23 vomiting #7 tabs ondansetron 4 mg disintegrating 4 mg PO QID PRN nausea and 02/28/25 tablet vomiting #10 tabs Allergies Allergy/AdvReac Type Severity Reaction Status Date / Time No Known Allergies Allergy Verified 08/15/22 12:18 [facility] <JILLIAN Jameson - Last Filed: 03/08/25 20:54> [facility] Disclaimer: The information contained in this section may have been updated after the patient was seen, as this information can be updated by other users. Medical History Abnormal uterine bleeding Anxiety Breast tenderness in female History of drug abuse Pelvic pain Surgical History History of section, classical Family History Other Alcoholism Cancer Diabetes Heart attack Hyperlipidemia Hypertension Substance abuse Social History (Updated 08/15/22 @ 12:37 by Edy Mcclelland RN) Smoking Status: Current every day smoker alcohol intake: current substance use type: former substance user current occupational status: other Travel in the last 8 weeks?: None household members: other Have you lived/traveled outside [place] in past 30 days?: No Contact w/someone who lives/traveled outside US past 30 days?: No Exposure to someone with infectious disease in past 14 days?: No Do you have a fever (greater than 100.4 F or 38 C)?: No Have you tested positive for COVID-19?: No Exposed to someone with COVID-19 in past 14 days?: No Do you have a sore throat?: No Do you have a cough?: No Do you have any weakness?: No Do you have any diarrhea?: No Are you experiencing any unusual bleeding?: No Do you have any muscle aches/pain?: No Do you have any abdominal pain?: No Are you experiencing loss of taste or smell?: No Other Medical History Have you received the Flu Vaccine for this season: No Have you received the Pneumonia Vaccine: No <JILLIAN Jameson - Last Filed: 03/08/25 20:54> ROS Obtained: Yes Systems reviewed as appropriate & no additional complaints except as documented Physical Exam <JILLIAN Jameson - Last Filed: 03/08/25 20:54> General General appearance: alert Respiratory Respiratory exam: Present normal lung sounds bilaterally Cardiovascular Cardiovascular exam: Present regular rate Neurological Exam Neurological exam: Present alert and oriented X3 Medical Decision Making <JILLIAN Jameson - Last Filed: 03/08/25 20:54> Medical Records Medical records reviewed: Yes I reviewed the patient's medical records. Screening: Per USPSTF and CDC recommendations, given the prevalence of disease in our region, it is our hospital?s policy to screen for HIV and viral Hepatitis for all patients aged 18 and over and those with ongoing risk factors. [place] Inquiry Pt receiving controlled substance: No Vital Signs: 03/08/25 18:46 Temperature 98.4 F Temperature Source Oral Pulse Rate [Right] 94 H Respiratory Rate 18 Blood Pressure [Right Arm] 144/74 H Blood Pressure Mean [Right Arm] 97 02 Sat by Pulse Oximetry 99 Oxygen Delivery Method Room Air Lab Data Lab results reviewed: Yes I reviewed the patient's lab results. Lab Results 03/08/25 18:48: WBC 7.8, RBC 4.08 L, Hgb 12.2, Hct 37.9, MCV 92.9, MCH 29.9, MCHC 32.2, RDW 13.2, Plt Count 253, MPV 12.0 H, Neut % (Auto) 55.1, Lymph % (Auto) 33.9, [place] % (Auto) 7.7, Eos % (Auto) 2.7, Baso % (Auto) 0.5, Neut # (Auto) 4.3, Lymph # (Auto) 2.7, [place] # (Auto) 0.6, Eos # (Auto) 0.2, Baso # (Auto) 0.0, ESR 23 H, PT 10.4, INR 0.92, D-Dimer 0.99 H, Sodium 136, Potassium 3.4 L, Chloride 102, Carbon Dioxide 32 H, Anion Gap 5.4, BUN 10, Creatinine 0.70, Estimated Creat Clear 121, Estimated GFR 92, Est GFR ( Amer) 112, Glucose 100, Calcium 8.8, Total Bilirubin 0.4, AST 38 H, ALT 18, Alkaline Phosphatase 50, Total Creatine Kinase 132, C-Reactive Protein 34.2 H, NT-Pro-B Natriuret Pep 20.6, Total Protein 7.0, Albumin 4.4, Globulin 2.6, Albumin/Globulin Ratio 1.7, Procalcitonin 0.049, HCV Ab ASH w/Rflx PCR Qn Negative, HIV Ag/Ab Combo Qual Negative 03/08/25 18:48 03/08/25 18:48 Orders (Tests/Meds): ED MEDICATIONS Discontinued Medications Generic Name Dose Route Start Last Admin Trade Name Dreq PRN Reason Stop Dose Admin Acetaminophen 1,000 mg 03/08/25 18:52 03/08/25 19:23 Acetaminophen 500mg Tab PO 03/08/25 18:53 1,000 mg ONCE ONE Administration Dalbavancin 1,500 mg/ Dextrose 250 mls @ 500 mls/hr 03/08/25 20:52 03/08/25 21:32 IV 03/08/25 20:53 500 mls/hr ONCE ONE Administration Ketorolac Tromethamine 15 mg 03/08/25 18:52 03/08/25 19:23 Ketorolac 30mg/Ml Vial IV 03/08/25 18:53 15 mg ONCE ONE Administration ORDERS Category Date Time Status POCUS Point of Care (ER Only) Stat Exams 03/08/25 18:52 Taken BNP [NT Pro Brain Natriuretic Pep.] Stat Lab 03/08/25 18:48 Completed CBC w/Auto Diff [Complete Blood Count Auto Diff] Stat Lab 03/08/25 18:48 Completed CK [Creatine Kinase] Stat Lab 03/08/25 18:48 Completed CMP [Comprehensive Metabolic Panel] Stat Lab 03/08/25 18:48 Completed CRP [C-Reactive Protein] Stat Lab 03/08/25 18:48 Completed D-Dimer Stat Lab 03/08/25 18:48 Completed ESR [Erythrocyte Sedimentation Rate] Stat Lab 03/08/25 18:48 Completed HIV Combo Stat Lab 03/08/25 18:48 Completed Hepatitis C Ab Qual. W/ RFX Stat Lab 03/08/25 18:48 Completed INR [Prothrombin Time INR] Stat Lab 03/08/25 18:48 Completed Procalcitonin Stat Lab 03/08/25 18:48 Completed UA [Urinalysis and Microscopic] Stat Lab 03/08/25 18:53 Ordered Urine , HCG Qual. Stat Lab 03/08/25 18:53 Ordered Blood Culture Stat Micro 03/08/25 18:53 Received Medical Decision Narrative: In summary patient is a 40-year-old female who presents to the emergency department for evaluation of bilateral lower extremity edema pain and redness. Patient is initially normotensive 144/74 heart rate 94 with normal sinus rhythm on bedside monitor breathing 18 times a minute satting at 99% on room air upon arrival, afebrile at 98.4. Physical exam is remarkable for 3+ pitting edema in the bilateral lower extremities. There is tenderness to palpation however there are no palpable cords. There is also associated erythema but no induration fluctuance wounds noted. Patient is neurovascular intact distally with good peripheral pulses and cap refill. Differential diagnosis includes lymphedema versus lymphangitis versus cellulitis versus possible thrombus. Initial workup will be conducted with hematologic labs D-dimer blood cultures POCUS. Initial interventions include Tylenol Toradol Zofran. Initial workup reviewed by me and patient's white count 7.8 hemoglobin hematocrit are normal absolute neutrophil count is 4.3, sed rate 23 D-dimer 0.99 and the thrombus is excluded by years criteria, CRP is 342 procalcitonin is 0.049 and POCUS reveals cobblestoning but no fluid collection or thrombus. Given this patient is a candidate for Dalvance thus she will be given a dose of Dalvance. Patient reports improvement after Dalvance and initial interventions. She is therefore appropriate for discharge with follow-up with her PCP within 48 hours for recheck and strict return precautions <Enoch Banda MD - Last Filed: 03/08/25 21:50> Vital Signs: 03/08/25 18:46 Temperature 98.4 F Temperature Source Oral Pulse Rate [Right] 94 H Respiratory Rate 18 Blood Pressure [Right Arm] 144/74 H Blood Pressure Mean [Right Arm] 97 02 Sat by Pulse Oximetry 99 Oxygen Delivery Method Room Air Lab Data Lab Results 03/08/25 18:48: WBC 7.8, RBC 4.08 L, Hgb 12.2, Hct 37.9, MCV 92.9, MCH 29.9, MCHC 32.2, RDW 13.2, Plt Count 253, MPV 12.0 H, Neut % (Auto) 55.1, Lymph % (Auto) 33.9, [place] % (Auto) 7.7, Eos % (Auto) 2.7, Baso % (Auto) 0.5, Neut # (Auto) 4.3, Lymph # (Auto) 2.7, [place] # (Auto) 0.6, Eos # (Auto) 0.2, Baso # (Auto) 0.0, ESR 23 H, PT 10.4, INR 0.92, D-Dimer 0.99 H, Sodium 136, Potassium 3.4 L, Chloride 102, Carbon Dioxide 32 H, Anion Gap 5.4, BUN 10, Creatinine 0.70, Estimated Creat Clear 121, Estimated GFR 92, Est GFR ( Amer) 112, Glucose 100, Calcium 8.8, Total Bilirubin 0.4, AST 38 H, ALT 18, Alkaline Phosphatase 50, Total Creatine Kinase 132, C-Reactive Protein 34.2 H, NT-Pro-B Natriuret Pep 20.6, Total Protein 7.0, Albumin 4.4, Globulin 2.6, Albumin/Globulin Ratio 1.7, Procalcitonin 0.049, HCV Ab ASH w/Rflx PCR Qn Negative, HIV Ag/Ab Combo Qual Negative Orders (Tests/Meds): ED MEDICATIONS Discontinued Medications Generic Name Dose Route Start Last Admin Trade Name Shashi PRN Reason Stop Dose Admin Acetaminophen 1,000 mg 03/08/25 18:52 03/08/25 19:23 Acetaminophen 500mg Tab PO 03/08/25 18:53 1,000 mg ONCE ONE Administration Dalbavancin 1,500 mg/ Dextrose 250 mls @ 500 mls/hr 03/08/25 20:52 03/08/25 21:32 IV 03/08/25 20:53 500 mls/hr ONCE ONE Administration Ketorolac Tromethamine 15 mg 03/08/25 18:52 03/08/25 19:23 Ketorolac 30mg/Ml Vial IV 03/08/25 18:53 15 mg ONCE ONE Administration ORDERS Category Date Time Status POCUS Point of Care (ER Only) Stat Exams 03/08/25 18:52 Taken BNP [NT Pro Brain Natriuretic Pep.] Stat Lab 03/08/25 18:48 Completed CBC w/Auto Diff [Complete Blood Count Auto Diff] Stat Lab 03/08/25 18:48 Completed CK [Creatine Kinase] Stat Lab 03/08/25 18:48 Completed CMP [Comprehensive Metabolic Panel] Stat Lab 03/08/25 18:48 Completed CRP [C-Reactive Protein] Stat Lab 03/08/25 18:48 Completed D-Dimer Stat Lab 03/08/25 18:48 Completed ESR [Erythrocyte Sedimentation Rate] Stat Lab 03/08/25 18:48 Completed HIV Combo Stat Lab 03/08/25 18:48 Completed Hepatitis C Ab Qual. W/ RFX Stat Lab 03/08/25 18:48 Completed INR [Prothrombin Time INR] Stat Lab 03/08/25 18:48 Completed Procalcitonin Stat Lab 03/08/25 18:48 Completed UA [Urinalysis and Microscopic] Stat Lab 03/08/25 18:53 Ordered Urine , HCG Qual. Stat Lab 03/08/25 18:53 Ordered Blood Culture Stat Micro 03/08/25 18:53 Received Medical Decision Narrative: In summary patient is a 40-year-old female who presents to the emergency department for evaluation of bilateral lower extremity edema pain and redness. Patient is initially normotensive 144/74 heart rate 94 with normal sinus rhythm on bedside monitor breathing 18 times a minute satting at 99% on room air upon arrival, afebrile at 98.4. Physical exam is remarkable for 3+ pitting edema in the bilateral lower extremities. There is tenderness to palpation however there are no palpable cords. There is also associated erythema but no induration fluctuance wounds noted. Patient is neurovascular intact distally with good peripheral pulses and cap refill. Differential diagnosis includes lymphedema versus lymphangitis versus cellulitis versus possible thrombus. Initial workup will be conducted with hematologic labs D-dimer blood cultures POCUS. Initial interventions include Tylenol Toradol Zofran. Initial workup reviewed by me and patient's white count 7.8 hemoglobin hematocrit are normal absolute neutrophil count is 4.3, sed rate 23 D-dimer 0.99 and the thrombus is excluded by years criteria, CRP is 342 procalcitonin is 0.049 and POCUS reveals cobblestoning but no fluid collection or thrombus. Given this patient is a candidate for Dalvance thus she will be given a dose of Dalvance. Patient reports improvement after Dalvance and initial interventions. She is therefore appropriate for discharge with follow-up with her PCP within 48 hours for recheck and strict return precautions I was consulted by the GODFREY, and we discussed the complexity of the problems being addressed. I approved the treatment and management plan for this patient's care in the Emergency Department, thus performing a substantive portion of the medical decision making. Enoch Banda MD Procedures <nEoch Banda MD - Last Filed: 03/08/25 21:50> Limited Ultrasound Indication:: Limited soft tissue ultrasound Indication: Soft tissue swelling, redness of the lower extremity on the right Identified structures: Location: Right lower extremity soft tissues Findings: Cellulitis without abscess of the right lower extremity with associated edema Impression: Cellulitis and associated edema of the right lower extremity distal to the knee without associated abscess, subcutaneous gas, or other concerns Images were saved to permanent archive The study was technically adequate Soft Tissue CPT Codes: CPT Neck: 97691-08 CPT Upper extremity: 11763-11 CPT Axilla: 74724-66 CPT Chest wall: 73123-57 CPT Breast: 14039-40-WT/LT (complete), 19331-34-IL/LT (limited), CPT Upper Back: 29357-24 CPT Lower Back: 86667-48 CPT Abdominal Wall: 79256-06 CPT Pelvic Wall: 60545-82 CPT Lower Extremity: 22494-77 CPT Other Soft Tissue: 76947-54 This study was performed by me, and I personally interpreted all images/videos. Based on my clinical judgement, these images were adequate and did not necessitate further imaging. Views:: Limited DVT ultrasound Indication: Limited compression ultrasonography of the right lower extremity was performed to evaluate for non-compressibility of the deep veins in the patient. The ultrasound was performed with the following indications, as noted in the H&P: Right lower extremity swelling and redness Identified structures: Right popliteal vein and calf veins were examined. Findings: Right Popliteal vein: Good compressibility Distal calf veins: Good compressibility Impression: No DVT demonstrated. Hyperemic right lower extremity with good compressibility of popliteal and distal calf veins consistent with cellulitis and edema Images were saved to permanent archive The study was technically adequate CPT: 91712-04-[place] 70096-75-[place] 73482-62 (complete bilateral study) This study was performed by me, and I personally interpreted all images/videos. Based on my clinical judgement, these images were adequate and did not necessitate further imaging Critical Care <JILLIAN Jameson - Last Filed: 03/08/25 20:54> Critical Care Time Critical Care Time: Yes Attestation: On 03/08/25, the high probability of a clinically significant, sudden or life threatening deterioration of the following system(s) required my full and direct attention, intervention and personal management. The time I documented below is in addition to time spent performing reported procedures but includes the following listed in this critical care notation. Total Time Total Critical Care Time: 35
[2025-03-08 18:46] VITALS: BP 144/74; PULSE 94; RESP 18; TEMP 36.9; O2SAT 99; BMI 25.8
[2025-03-08] MEDS: KETOROLAC 30MG/ML VIAL 15 MG IV (19:23)
[2025-03-08] MEDS: ACETAMINOPHEN 500MG TAB 1000 MG PO (19:23)
[2025-03-08 19:27] LABS: Alanine Aminotransferase 18 U/L (12-78); Albumin Level 4.4 g/dl (3.5-5.0); Albumin/Globulin Ratio 1.7 (1.1-1.8); Alkaline Phosphatase 50 U/L (38-126); Anion Gap 5.4 mEq/L (5-15); Aspartate Amino Transferase 38 U/L (14-36); Bilirubin,Total 0.4 mg/dl (0.2-1.3); Blood Urea Nitrogen 10 mg/dl (7-17); Calcium 8.8 mg/dl (8.4-10.2); Carbon Dioxide 32 mmol/L (22.0-30.0); Chloride 102 mmol/L (98-107); Creatine Kinase 132 U/L (30-135); Creatinine Clearance Estimated 121 mL/min (50-200); Estimated Glomerular Filt Rate 92 ml/min (>60); GFR (African American) 112 ML/MIN (>60); Globulin 2.6 g/dL (1.3-3.2); Glucose 100 mg/dl (74-100); Potassium 3.4 mmoL/L (3.5-5.1); Sodium 136 mmol/L (136-145)
[2025-03-08 19:32] LABS: C-Reactive Protein 34.2 mg/L (0-4)
[2025-03-08 19:37] LABS: Basophils % 0.5 % (0.1-2.0); Eosinophils # 0.2 Kmm3 (0.0-0.4); Eosinophils % 2.7 % (0.1-12.0); Hematocrit 37.9 % (37.0-47.0); Hemoglobin 12.2 g/dL (12.2-16.2); Immature Granulocytes # 0.01 10^3uL; Immature Granulocytes % 0.1 %; Lymphocytes # 2.7 K/mm3 (0.7-4.5); Lymphocytes % 33.9 % (10-50); Mean Corpuscular HGB Conc 32.2 g/dL (31.8-35.4); Mean Corpuscular Hemoglobin 29.9 pg (27.0-31.2); Mean Corpuscular Volume 92.9 fl (81-99); Monocytes # 0.6 K/mm3 (0.1-1.0); Monocytes % 7.7 % (1.7-9.3); Neutrophils # 4.3 K/mm3 (1.8-7.8); Neutrophils % 55.1 % (37.0-80.0); Nucleated Red Blood Cells # 0 10^3/uL; Nucleated Red Blood Cells % 0 %; Platelet Count 253 K/mm3 (142-424); Red Blood Count 4.08 M/mm3 (4.20-5.40); Red Cell Distribution Width 13.2 % (11.5-17.5); White Blood Count 7.8 K/mm3 (4.8-10.8)
[2025-03-08 19:38] LABS: NT Pro Brain Natriuretic Pep. 20.6 pg/mL (0-125)
[2025-03-08 19:43] LABS: INR 0.92 (0.9-1.1); Prothrombin Time 10.4 seconds (10.1-12.5)
[2025-03-08 19:46] LABS: Procalcitonin 0.049 ng/mL (0.0-2.0)
[2025-03-08 19:58] LABS: D-Dimer 0.99 ug/mL (0.0-0.5)
[2025-03-08 20:31] LABS: Hepatitis C Ab Qual. W/ RFX NEGATIVE (Negative)
[2025-03-08 20:34] LABS: Erythrocyte Sedimentation Rate 23 mm/hr (0-20)
[2025-03-08] MEDS: DALBAVANCIN HCL 1,500 MG in DEXTROSE 5 % IN WATER 250 ML 500 MG IV (21:32)
[2025-03-08 21:37] LABS: HIV Combo NEGATIVE (Negative)
[2025-03-08 22:02] VITALS: BP 126/86; PULSE 74; RESP 20; TEMP 36.6; O2SAT 96
== END 2025-03-08 22:10 | disposition home or self-care (01) ==
PROVIDERS: Physician Assistant; Emergency Provider Emergency Medicine; PCP Pediatrics
DX: L03.115 Cellulitis of right lower limb (principal); L03.116 Cellulitis of left lower limb; R60.0 Localized edema
CPT/HCPCS: 80053; 82550; 83880; 84145; 85025; 85378; 85610; 85651; 86140; 86803; 87040; 87389; 96374; 96375; 99285; J0875; J1885; J7060